=== PATIENT | male | born 1965 | race African-American/Black ===

== ENCOUNTER 2019-04-22 11:55 | Inpatient (IN) | payer MEDICAID ==
[~2019-04-22] VITALS: Ht 162.6 cm; Wt 76.8 kg
[2019-04-22] MEDS ORDERED: SODIUM CHLORIDE 0.9% 1,000 ML IV ONE (14:51)
[2019-04-22 15:33] LABS: CHLORIDE 108 mEq/L (98-107); PARTIAL THROMBOPLASTIN TIME 27.5 sec (23.4-31.0); PROTHROMBIN TIME 10.4 sec (9.6-11.0)
[2019-04-22 15:36] LABS: BASOPHILS % 0.4 % (0.0-2.0); EOSINOPHILS % 0.6 % (0.0-5.0); HEMATOCRIT. 39.1 % (42.0-52.0); HEMOGLOBIN. 13.2 g/dL (14.0-18.0); LYMPHOCYTES % 38.3 % (20.0-50.0); MEAN CORPUSCULAR HEMOGLOBIN 27.3 pg (28.0-32.0); MEAN CORPUSCULAR VOLUME 80.9 fL (80.0-94.0); MEAN PLATELET VOLUME 6.4 fl (7.4-10.4); MONOCYTES % 5.6 % (2.0-8.0); NEUTROPHILS % 55.1 % (40.0-76.0); PLATELET 325 x1000/uL (130-400); RED BLOOD CELL COUNT 4.84 mill/uL (4.7-6.1); RED CELL DISTRIBUTION WIDTH 13.4 % (11.6-14.6)
[2019-04-22] MEDS ORDERED: IOHEXOL-350 100 ML BOTTLE ONE (16:39)
[2019-04-22] MEDS ORDERED: LEVETIRACETAM 500MG PREMIX 100 ML IV ONE (18:00)
[2019-04-22] MEDS ORDERED: DEXAMETHASONE 10 MG/ML VIAL IV ONE (18:00)
[2019-04-22] MEDS ORDERED: GADOBENATE DIMEGLUMINE 529 MG/ML 10ML IV ONE (18:08)
[2019-04-22] MEDS ORDERED: ACETAMINOPHEN 325MG TABLET PO PRN (20:30)
[2019-04-22] MEDS ORDERED: DEXTROSE 50% WATER 50ML SYRINGE IV PRN ×2 (20:30)
[2019-04-22] MEDS ORDERED: ONDANSETRON HCL 4MG/2ML INJ IV PRN (20:30)
[2019-04-22] MEDS ORDERED: DIPHENHYDRAMINE 50MG/ML VIAL IV PRN (20:30)
[2019-04-22] MEDS ORDERED: CLONIDINE 0.1MG TABLET PO PRN (20:30)
[2019-04-22] MEDS ORDERED: MAGNESIUM/ALUMINUM HYDROXIDE/SIMETHICONE 30ML UDC PO PRN (20:30)
[2019-04-22] MEDS ORDERED: GUAIFENESIN 200MG/10ML SUGAR FREE UDC PO PRN (20:30)
[2019-04-22] MEDS ORDERED: BLOOD SUGAR DIAGNOSTIC STRIP TEST SCH (21:00)
[2019-04-22] MEDS: BLOOD SUGAR DIAGNOSTIC STRIP TEST SCH (21:00)
[2019-04-22] MEDS: INSULIN LISPRO 100 UNITS/ML SUBCUT SCH (22:08)
[2019-04-22] MEDS: SODIUM CHLORIDE 0.9% INJ 3ML FLUSH IVF SCH (22:09)
[2019-04-22 22:45] VITALS: BP 117/66
[2019-04-23] VITALS (8 sets, daily range): BP systolic 98–135; BP diastolic 56–82
[2019-04-23] MEDS: SODIUM CHLORIDE 0.9% INJ 3ML FLUSH IVF SCH ×2 (06:00→13:11)
[2019-04-23] MEDS: BLOOD SUGAR DIAGNOSTIC STRIP TEST SCH ×2 (07:30→13:05)
[2019-04-23] MEDS: INSULIN LISPRO 100 UNITS/ML SUBCUT SCH ×2 (08:00→13:23)
[2019-04-23] MEDS ORDERED: METFORMIN HCL 500MG TABLET PO SCH (08:00)
== END 2019-04-23 18:09 | disposition home or self-care (01) | DRG 58 ==
LOC: ER 11:55 → 5EST 18:18 → EDBEDREQTM 18:21 → EDBEDREQ 18:21 → EDBEDREQSVC 18:21 → EDBEDREQ 19:28 → ENRESERV 21:27
PROVIDERS: ADMIT Internal Medicine; ATTEND Internal Medicine
DX: D49.6 Neoplasm of unspecified behavior of brain (principal); G93.41 Metabolic encephalopathy; E11.9 Type 2 diabetes mellitus without complications; Z92.3 Personal history of irradiation; Z83.3 Family history of diabetes mellitus; Z79.899 Other long term (current) drug therapy; Z85.841 Personal history of malignant neoplasm of brain; Z86.011 Personal history of benign neoplasm of the brain; Z79.84 Long term (current) use of oral hypoglycemic drugs
CPT/HCPCS: 36415; 70496; 70498; 70553; 71045; 80053; 82962; 83036; 83880; 84484; 85025; 93005; 93970; 99291; A9577; J1100; J1815; J1953; J7030; Q9967